=== PATIENT | female | born 1965 | race American Indian/Alaskan Native ===

== ENCOUNTER 2017-10-22 00:40 | Emergency (ER) | payer OTHER, MEDICARE ==
[2017-10-22] MEDS ORDERED: ZOFRAN ODT PO ONE (02:47)
[2017-10-22] MEDS ORDERED: TYLENOL PO ONE (02:47)
[2017-10-22] MEDS: MORPHINE IM ONE ×2 (02:50→03:29)
[2017-10-22] MEDS ORDERED: MORPHINE ONE (02:56)
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
[2017-10-22] MEDS ORDERED: DILAUDID ONE (03:52)
[2017-10-22] MEDS ORDERED: DILAUDID IM ONE (03:52)
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
--- NOTE | 2017-10-22 04:41 | XRay Report ---
FINAL REPORT EXAM: XR SPINE CERVICAL 2-3V HISTORY: right lower neck pain TECHNIQUE: Four views of the cervical spine were obtained. FINDINGS: There is mild narrowing of the C4-C5-C5-C6 and C6-C7 disc. There anterior osteophyte at C4. The alignment appears normal. The pre vertebral soft tissues and C1-C2 articulation otherwise appear intact. IMPRESSION: Degenerative arthritic changes as described. No acute injury.
--- NOTE | 2017-10-22 04:42 | XRay Report ---
FINAL REPORT EXAM: XR SPINE THORACIC 3V HISTORY: interscapula back pain TECHNIQUE: AP and lateral views of the thoracic spine were submitted. FINDINGS: There is disc degeneration in the mid to upper dorsal spine. There is no evidence of fracture. The soft tissue lines are well maintained. IMPRESSION: Disc degeneration in the mid to upper thoracic spine. No evidence of fracture.
[2017-10-22 06:50] VITALS: BP 119/69
== END 2017-10-22 07:11 | disposition home or self-care (01) ==
LOC: ED 00:40
DX: G44.319 Acute post-traumatic headache, not intractable (principal); V49.50XA Passenger injured in collision with unspecified motor vehicles in traffic accident, initial encounter; M25.511 Pain in right shoulder; M54.2 Cervicalgia; K21.9 Gastro-esophageal reflux disease without esophagitis; M19.90 Unspecified osteoarthritis, unspecified site; F31.9 Bipolar disorder, unspecified; Z90.49 Acquired absence of other specified parts of digestive tract; Z86.73 Personal history of transient ischemic attack (TIA), and cerebral infarction without residual deficits; Z88.1 Allergy status to other antibiotic agents; Z88.6 Allergy status to analgesic agent; Y93.89 Activity, other specified; Y92.89 Other specified places as the place of occurrence of the external cause; Y99.8 Other external cause status
CPT/HCPCS: 70450; 72040; 72072; 93005; 93010; 96372; 99285; J1170; J2270; Q0162

== ENCOUNTER 2018-08-15 22:25 | Emergency (ER) | payer MEDICARE ==
[2018-08-15] MEDS ORDERED: NACL 0.9% 1000 ML 1,000 ML IV ONE (22:33)
[2018-08-15 22:57] LABS: Basophils % (Auto) 0.1 % (0.0-1.8); Eosinophils # (Auto) 0.2 K/mm3 (0.0-0.4); Eosinophils % (Auto) 2.1 % (0.0-4.3); Hematocrit 35.7 % (30.3-42.9); Hemoglobin 12.4 gm/dl (10.1-14.3); Lymphocytes # (Auto) 1.2 K/mm3 (1.2-5.4); Lymphocytes % (Auto) 10.8 % (13.4-35.0); Mean Corpuscular HGB Conc 35 % (30-34); Mean Corpuscular Volume 95 fl (79-97); Monocytes # (Auto) 0.6 K/mm3 (0.0-0.8); Monocytes % (Auto) 5.5 % (0.0-7.3); Platelet Count 233 K/mm3 (140-440); Red Blood Count 3.78 M/mm3 (3.65-5.03); Red Cell Distribution Width 14.2 % (13.2-15.2)
[2018-08-15 23:16] LABS: Alanine Aminotransferase 13 units/L (7-56); Albumin 4.3 g/dL (3.9-5); BUN/Creatinine Ratio 17; Blood Urea Nitrogen 10 mg/dL (7-17); Calcium 9.3 mg/dL (8.4-10.2); Hemolysis Index 24
[2018-08-15] MEDS ORDERED: HALDOL IM STA (23:19)
--- NOTE | 2018-08-15 23:20 | Emergency Department Report ---
ED General Adult HPI - General Chief complaint: Abdominal Pain Stated complaint: ABD PAIN Time Seen by Provider: 08/15/18 23:19 Source: patient, EMS (ems notes not available at time of chart dictation), RN notes reviewed, old records reviewed Mode of arrival: Stretcher Limitations: No Limitations - History of Present Illness Initial comments: This is a 53-year-old female. The patient is not known to this provider previously. The patient presents to the emergency room with the complaint of diffuse abdominal pain, nausea and vomiting. Patient reports chronic abdominal pain, and frequent issues with nausea, vomiting. Her past medical history includes documented stroke, GERD, bipolar, schizophrenia, chronic pain, gastroparesis, neuropathy, multiple abdominal surgeries, abdominal colectomy, and reported cannabis consumption. Patient was last seen in this hospital in 2014. In that year, she had multiple CT scans of the abdomen and pelvis for chronic abdominal pain, which demonstrated chronic findings. Today, the patient presents to the emergency room with her typical complaint of abdominal pain, nausea and vomiting. She denies irritative, obstructive urinary symptoms. She reports recently, being evaluated and treated in [place]. However, she reports her local physician is at [facility]. In the emergency room, she is initially writhing around in discomfort, and retching. However, when this provider interviews the patient, she stops retching, has a full conversation, and is noted to be laying down quite still. -: Gradual, hour(s) Location: abdomen Radiation: non-radiation Quality: aching Consistency: constant Improves with: medication Worsens with: movement Associated Symptoms: loss of appetite, malaise, nausea/vomiting, weakness - Related Data Previous Rx's Medication Instructions Recorded Last Taken Type Acetaminophen [Tylenol Arthritis] 650 mg PO Q6HR PRN #30 tablet.er 08/16/18 Unknown Rx Clindamycin HCl 300 mg PO Q6HR #20 capsule 08/16/18 Unknown Rx Dicyclomine [Bentyl] 10 mg PO QID PRN #20 capsule 08/16/18 Unknown Rx Famotidine [Pepcid] 20 mg PO BID #30 tablet 08/16/18 Unknown Rx Metoclopramide [Reglan] 10 mg PO QID PRN #30 tablet 08/16/18 Unknown Rx Promethazine [Phenergan SUPPOS] 50 mg IA Q6H PRN #20 supp.rect 08/16/18 Unknown Rx Allergies Allergy/AdvReac Type Severity Reaction Status Date / Time ciprofloxacin [From Cipro] Allergy Hives Verified 05/24/15 14:49 ciprofloxacin HCl Allergy Hives Verified 05/24/15 14:49 [From Cipro] fentanyl Allergy Unknown Verified 08/15/18 22:35 ibuprofen Allergy Hives Verified 05/24/15 14:49 ketorolac tromethamine Allergy Hives Verified 05/24/15 14:49 [From Toradol] meperidine HCl [From Demerol] Allergy Hives Verified 05/24/15 14:49 metronidazole [From Flagyl] Allergy Hives Verified 05/24/15 14:49 Penicillins Allergy Hives Verified 05/24/15 14:49 Sulfa (Sulfonamide Allergy Hives Verified 05/24/15 14:49 Antibiotics) azithromycin [From Zithromax] AdvReac Unknown Verified 08/15/18 22:35 loperamide [From Imodium A-D] AdvReac Unknown Verified 08/15/18 22:35 morphine AdvReac Unknown Verified 05/24/15 14:49 DISSOLVEABLE SUTURES Allergy Unknown Uncoded 05/24/15 14:49 ED Review of Systems ROS: Stated complaint: ABD PAIN Other details as noted in HPI Constitutional: malaise. denies: fever Eyes: denies: vision change ENT: denies: epistaxis Respiratory: denies: orthopnea Cardiovascular: denies: chest pain Gastrointestinal: abdominal pain, nausea, vomiting Genitourinary: denies: dysuria Musculoskeletal: arthralgia, myalgia Skin: denies: lesions Neurological: weakness Psychiatric: anxiety ED Past Medical Hx - Past Medical History Previous Medical History?: Yes Hx CVA: Yes (09/2013) Hx GERD: Yes Hx Arthritis: Yes Hx Psychiatric Treatment: Yes (bipolar/ schizoprenia.."NERVOUS BREAKDOWN") Additional medical history: Chronic pain. gastroparesis. neuropathy. - Surgical History Past Surgical History?: Yes Hx Cholecystectomy: Yes Additional Surgical History: "multiple (33) surgeries", patient states she had colon cancer with a complete colectomy and had multiple complicating surgeries after that. Ileostomy - Social History Smoking Status: Current Every Day Smoker Substance Use Type: Alcohol, Marijuana - Medications Home Medications: Home Medications Medication Instructions Recorded Confirmed Last Taken Type Acetaminophen [Tylenol Arthritis] 650 mg PO Q6HR PRN #30 tablet.er 08/16/18 Unknown Rx Clindamycin HCl 300 mg PO Q6HR #20 capsule 08/16/18 Unknown Rx Dicyclomine [Bentyl] 10 mg PO QID PRN #20 capsule 08/16/18 Unknown Rx Famotidine [Pepcid] 20 mg PO BID #30 tablet 08/16/18 Unknown Rx Metoclopramide [Reglan] 10 mg PO QID PRN #30 tablet 08/16/18 Unknown Rx Promethazine [Phenergan SUPPOS] 50 mg IA Q6H PRN #20 supp.rect 08/16/18 Unknown Rx ED Physical Exam - General Limitations: No Limitations General appearance: alert, in no apparent distress - Head Head exam: Present: atraumatic, normocephalic - Eye Eye exam: Present: normal appearance, EOMI. Absent: nystagmus - ENT ENT exam: Present: normal exam, normal orophraynx, mucous membranes moist, normal external ear exam - Neck Neck exam: Present: normal inspection, full ROM. Absent: tenderness, meningismus - Respiratory Respiratory exam: Present: normal lung sounds bilaterally. Absent: respiratory distress - Cardiovascular Cardiovascular Exam: Present: regular rate, normal rhythm, normal heart sounds. Absent: bradycardia, tachycardia, irregular rhythm, systolic murmur, diastolic murmur, rubs, gallop - GI/Abdominal GI/Abdominal exam: Present: soft, other (colostomy noted with no redness, pus or streaking.). Absent: distended, tenderness, guarding, rebound, rigid, pulsatile mass - Rectal Rectal exam: Present: normal inspection (chaperoned by reclamation furnace operator Jonny Wise) - External exam: Present: other (chaperoned by reclamation furnace operator Jonny Cole) - Extremities Exam Extremities exam: Present: normal inspection, full ROM, other (2+ pulses noted in the bilateral upper, lower extremities. Compartments soft. No long bony tenderness. The pelvis is stable.). Absent: pedal edema, joint swelling, calf tenderness - Back Exam Back exam: Present: normal inspection, full ROM. Absent: tenderness, CVA tenderness (R), paraspinal tenderness, vertebral tenderness - Neurological Exam Neurological exam: Present: alert, oriented X3, other (Extraocular movements intact. Tongue midline. No facial droop. Facial sensation intact to light touch in the V1, V2, V3 distribution bilaterally. 5 and 5 strength in 4 extremities.. Sensation is intact to light touch in 4 extremities.). Absent: motor sensory deficit - Psychiatric Psychiatric exam: Present: anxious - Skin Skin exam: Present: warm, dry, intact, normal color. Absent: rash ED Course Vital Signs 08/15/18 08/15/18 08/15/18 23:10 23:46 23:48 Temperature Pulse Rate 87 57 L 64 Respiratory 25 H 15 15 Rate Blood Pressure 136/77 136/77 Blood Pressure [Left] O2 Sat by Pulse 100 99 Oximetry 08/16/18 08/16/18 08/16/18 00:00 01:58 03:00 Temperature 98.5 F Pulse Rate 59 L 82 Respiratory 18 16 Rate Blood Pressure 136/77 Blood Pressure 106/67 [Left] O2 Sat by Pulse 99 99 Oximetry 08/16/18 03:01 Temperature Pulse Rate Respiratory 15 Rate Blood Pressure Blood Pressure [Left] O2 Sat by Pulse 98 Oximetry - Reevaluation(s) Reevaluation #1: 08/16/18 01:46 ga composite technician aware Filled ID Written Drug QTY Days Prescriber Rx # Pharmacy * Refills Daily Dose Pymt Type [employer]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 08/05/2018 2 08/05/2018 OXYCODONE HCL 30 MG TABLET 45.0 15 CLA [id number] PALLI ([id number]) 0 135.0 MME Comm Ins 07/26/2018 6 07/26/2018 LORAZEPAM 1 MG TABLET 20.0 6 [facility] [id number] AMANUEL ([id number]) 0 Private Pay 07/23/2018 2 07/23/2018 OXYCODONE HCL 30 MG TABLET 45.0 15 CLA [id number] [facility] ([id number]) 0 135.0 MME Comm Ins 07/09/2018 2 07/09/2018 OXYCODONE HCL 30 MG TABLET 45.0 15 CLA [id number] [facility] ([id number]) 0 135.0 MME Comm Ins 06/25/2018 2 06/25/2018 OXYCODONE HCL 30 MG TABLET 45.0 15 CLA [id number] [facility] ([id number]) 0 135.0 MME Comm Ins 06/11/2018 2 06/11/2018 OXYCODONE HCL 30 MG TABLET 45.0 15 [facility] [id number] PALLI ([id number]) 0 135.0 MME Comm Ins [place] 08/16/18 01:49 It appears that the patient has multiple controlled prescriptions from a [facility] in [place], [place] [phone] [address] [place] [address] Reevaluation #2: 08/16/18 01:49 Differential diagnosis, including but not limited to: GERD, gastritis, hiatal hernia, cyclic vomiting syndrome, cannabinoid hyperemesis syndrome, narcotic bowel syndrome Assessment and plan: 53-year-old female, documented to be on multiple chronic narcotic therapies, reported history of cannabis use, clinically sober at this time, has a full conversation with me, in no acute distress, with no active vomiting. Highly doubt acute condition at this time, this is likely related to her chronic medical conditions, and chronic use of opioids, and cannabis. Patient given Haldol, this basically stopped her symptoms. Laboratory studies thus far unremarkable. Temperature documented to be 98. CT scan of the abdomen and pelvis has been acquired, we are awaiting interpretation. Reevaluation #3: 08/16/18 04:48 CT scan findings reviewed and appreciated, and demonstrated a very small subcutaneous fluid collection. On her physical exam, it does not appear to be consistent with an abscess. However, these findings are new when compared to prior CT scan. Patient reassessed multiple times by myself while in the emergency department. She is sleeping comfortably, and in no acute distress. I will start her on oral outpatient antibiotics, and discharged with nonnarcotic, nonsedating, hys-gaggq-ainqfab medication, nausea medication. Discussed with the general surgeon on-call, Dr. Ana Laura Urbina, who agreed that it would be reasonable to discharge patient with oral antibiotics, and that her current presentation did not qualify for emergent hospitalization or emergent surgical intervention. Her practice is amenable to seeing the patient as a follow-up. - EJ/Peripheral Line Neck L Time Out Performed: Yes Indications: nurses unable to establis Skin Cleansed in Sterile Fashion: Yes Size: 20 Dressing Placed: Tegaderm Patient Tolerated Procedure: well ED Medical Decision Making - Lab Data Result diagrams: 08/15/18 22:41 08/15/18 22:41 Vital Signs 08/15/18 08/15/18 08/15/18 23:10 23:46 23:48 Pulse Rate 87 57 L 64 Respiratory 25 H 15 15 Rate Blood Pressure 136/77 136/77 O2 Sat by Pulse 100 99 Oximetry 08/16/18 00:00 Pulse Rate 59 L Respiratory 18 Rate Blood Pressure 136/77 O2 Sat by Pulse 99 Oximetry Lab Results 08/15/18 08/15/18 08/15/18 Range/Units 00:54 22:41 22:41 WBC 11.5 H (4.5-11.0) K/mm3 RBC 3.78 (3.65-5.03) M/mm3 Hgb 12.4 (10.1-14.3) gm/dl Hct 35.7 (30.3-42.9) % MCV 95 (79-97) fl MCH 33 H (28-32) pg MCHC 35 H (30-34) % RDW 14.2 (13.2-15.2) % Plt Count 233 (140-440) K/mm3 Lymph % (Auto) 10.8 L (13.4-35.0) % [place] % (Auto) 5.5 (0.0-7.3) % Eos % (Auto) 2.1 (0.0-4.3) % Baso % (Auto) 0.1 (0.0-1.8) % Lymph # 1.2 (1.2-5.4) K/mm3 [place] # 0.6 (0.0-0.8) K/mm3 Eos # 0.2 (0.0-0.4) K/mm3 Baso # 0.0 (0.0-0.1) K/mm3 Seg Neutrophils % 81.5 H (40.0-70.0) % Seg Neutrophils # 9.4 H (1.8-7.7) K/mm3 Sodium 145 (137-145) mmol/L Potassium 3.7 (3.6-5.0) mmol/L Chloride 104.7 (98-107) mmol/L Carbon Dioxide 26 (22-30) mmol/L Anion Gap 18 mmol/L BUN 10 (7-17) mg/dL Creatinine 0.6 L (0.7-1.2) mg/dL Estimated GFR > 60 ml/min BUN/Creatinine Ratio 17 % Glucose 153 H (65-100) mg/dL Calcium 9.3 (8.4-10.2) mg/dL Magnesium (1.7-2.3) mg/dL Total Bilirubin 0.60 (0.1-1.2) mg/dL AST 20 (5-40) units/L ALT 13 (7-56) units/L Alkaline Phosphatase 81 (35-129) units/L Total Creatine Kinase (30-135) units/L Total Protein 6.5 (6.3-8.2) g/dL Albumin 4.3 (3.9-5) g/dL Albumin/Globulin Ratio 2.0 % Urine Color Yellow (Yellow) Urine Turbidity Cloudy (Clear) Urine pH 7.0 (5.0-7.0) Ur Specific [place] 1.035 H (1.003-1.030) Urine Protein <15 mg/dl (Negative) mg/dL Urine Glucose (UA) Neg (Negative) mg/dL Urine Ketones Neg (Negative) mg/dL Urine Blood Neg (Negative) Urine Nitrite Neg (Negative) Urine Bilirubin Neg (Negative) Urine Urobilinogen < 2.0 (<2.0) mg/dL Ur Leukocyte Esterase Sm (Negative) Urine WBC (Auto) 12.0 H (0.0-6.0) /HPF Urine RBC (Auto) 1.0 (0.0-6.0) /HPF U Epithel Cells (Auto) < 1.0 (0-13.0) /HPF Amorphous Crystals 1+ Urine Mucus Few /HPF 08/15/18 Range/Units 23:47 WBC (4.5-11.0) K/mm3 RBC (3.65-5.03) M/mm3 Hgb (10.1-14.3) gm/dl Hct (30.3-42.9) % MCV (79-97) fl MCH (28-32) pg MCHC (30-34) % RDW (13.2-15.2) % Plt Count (140-440) K/mm3 Lymph % (Auto) (13.4-35.0) % [place] % (Auto) (0.0-7.3) % Eos % (Auto) (0.0-4.3) % Baso % (Auto) (0.0-1.8) % Lymph # (1.2-5.4) K/mm3 [place] # (0.0-0.8) K/mm3 Eos # (0.0-0.4) K/mm3 Baso # (0.0-0.1) K/mm3 Seg Neutrophils % (40.0-70.0) % Seg Neutrophils # (1.8-7.7) K/mm3 Sodium (137-145) mmol/L Potassium (3.6-5.0) mmol/L Chloride (98-107) mmol/L Carbon Dioxide (22-30) mmol/L Anion Gap mmol/L BUN (7-17) mg/dL Creatinine (0.7-1.2) mg/dL Estimated GFR ml/min BUN/Creatinine Ratio % Glucose (65-100) mg/dL Calcium (8.4-10.2) mg/dL Magnesium 2.20 (1.7-2.3) mg/dL Total Bilirubin (0.1-1.2) mg/dL AST (5-40) units/L ALT (7-56) units/L Alkaline Phosphatase (35-129) units/L Total Creatine Kinase 103 (30-135) units/L Total Protein (6.3-8.2) g/dL Albumin (3.9-5) g/dL Albumin/Globulin Ratio % Urine Color (Yellow) Urine Turbidity (Clear) Urine pH (5.0-7.0) Ur Specific [place] (1.003-1.030) Urine Protein (Negative) mg/dL Urine Glucose (UA) (Negative) mg/dL Urine Ketones (Negative) mg/dL Urine Blood (Negative) Urine Nitrite (Negative) Urine Bilirubin (Negative) Urine Urobilinogen (<2.0) mg/dL Ur Leukocyte Esterase (Negative) Urine WBC (Auto) (0.0-6.0) /HPF Urine RBC (Auto) (0.0-6.0) /HPF U Epithel Cells (Auto) (0-13.0) /HPF Amorphous Crystals Urine Mucus /HPF - EKG Data -: EKG Interpreted by [facility] EKG shows normal: sinus rhythm Rate: normal - EKG Data 08/16/18 01:51 Sinus, 65 bpm, normal axis, normal intervals, not consistent with ST elevation myocardial infarction. - Radiology Data Radiology results: pending Critical care attestation.: If time is entered above; I have spent that time in minutes in the direct care of this critically ill patient, excluding procedure time. ED Disposition Clinical Impression: Abdominal pain Disposition: DC-01 TO HOME OR SELFCARE Is pt being admited?: No Does the pt Need Aspirin: No Condition: Stable Instructions: Abdominal Pain (ED) Additional Instructions: I recommend the patient discontinued consumption of cannabis, marijuana. I recommend the patient Descalate/taper use of narcotic therapies, as combination of oxycodone, OxyContin, narcotic medications, in conjunction with cannabis, marijuana, has been known to cause worsening abdominal pain, nausea, vomiting. Please follow-up with your primary care doctor or pain specialist to initiate and discuss a taper of the aforementioned medications. Take the pain medication, which is nonsedating [id number]-eqhbdyy, as needed/directed, and the nausea medications as needed/directed. Please follow-up with the listed general surgeon within the next 3-[address] scan of the abdomen and pelvis demonstrated a very small fluid collection next to the ostomy. This is very unlikely to be infected, but the patient will be discharged with oral antibiotics. It is very important to follow-up with the listed general surgeon to further evaluate this nonspecific fluid collection. Return to the emergency room right away with new, worsened or different symptoms. [facility] in [place], [place] [phone] [address] [place] [address] Prescriptions: Dicyclomine [Bentyl] 10 mg PO QID PRN #20 capsule PRN Reason: Pain Famotidine [Pepcid] 20 mg PO BID #30 tablet Promethazine [Phenergan SUPPOS] 50 mg IA Q6H PRN #20 supp.rect PRN Reason: Nausea Metoclopramide [Reglan] 10 mg PO QID PRN #30 tablet PRN Reason: Nausea Acetaminophen [Tylenol Arthritis] 650 mg PO Q6HR PRN #30 tablet.er PRN Reason: Pain Referrals: [facility] [Provider Group] - 3-5 Days MERLY URBINA DO [Staff Physician] - 3-5 Days
[2018-08-16 01:22] LABS: Amorphous Crystals,Urine 1+; Bilirubin,Urine NEG (Negative); Blood,Urine NEG (Negative); Color,Urine Yellow (Yellow); Mucus,Urine FEW /HPF; Protein,Urine <15 mg/dL mg/dL (Negative); Urobilinogen,Urine < 2.0 mg/dL (<2.0)
--- NOTE | 2018-08-16 01:46 | Cat Scan Report ---
PROCEDURE: CT ABDOMEN PELVIS W CON TECHNIQUE: Computerized axial tomography of the abdomen and pelvis was performed after the IV inject ion of iodinated nonionic contrast. CT DOSE LENGTH PRODUCT: mGycm HISTORY: abd pain n/v COMPARISONS: None . FINDINGS: Visualized lower thorax: No significant abnormality. Liver: Normal size and attenuation. Spleen: Normal size and attenuation. Gallbladder and biliary system: There has been a cholecystectomy.. Pancreas: Normal. Adrenals: Normal. Kidneys: Normal. 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 There is no spe cific evidence of bowel obstruction or enteritis. . Lymph nodes and mesentery: Normal. Vasculature: Normal.. Bladder: Normal. Reproductive organs: The uterus is atrophic and retroverted.. Peritoneum: There is no ascites or free air.. Musculoskeletal structures: No significant abnormality. Other: There is a subcutaneous loculated fluid collection adjacent to the ostomy measuring 2 cm in d iameter. There is a similar hypodense lesion in the subcutaneous fat near the umbilicus measuring 8 m m. These could be postsurgical seromas. Possibility of abscess not excluded. . IMPRESSION: There has been a cholecystectomy.. 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 There is no specific evide nce of bowel obstruction or enteritis. . The uterus is atrophic and retroverted.. There is no ascites or free air.. There is a subcutaneous loculated fluid collection adjacent to the ostomy measuring 2 cm in diameter. There is a similar hypodense lesion in the subcutaneous fat near the umbilicus measuring 8 mm. These could be postsurgical seromas. Possibility of abscesses not excluded. . . This document is electronically signed by Dante Ceron MD., August 16 2018 01:43:59 AM ET
[2018-08-16 05:32] VITALS: BP 96/59
== END 2018-08-16 05:30 | disposition home or self-care (01) ==
LOC: ED 22:25
DX: R10.84 Generalized abdominal pain (principal); R11.2 Nausea with vomiting, unspecified; K21.9 Gastro-esophageal reflux disease without esophagitis; F31.9 Bipolar disorder, unspecified; F20.9 Schizophrenia, unspecified; F17.200 Nicotine dependence, unspecified, uncomplicated; M19.90 Unspecified osteoarthritis, unspecified site; G62.9 Polyneuropathy, unspecified; Z90.49 Acquired absence of other specified parts of digestive tract; Z88.0 Allergy status to penicillin; Z88.1 Allergy status to other antibiotic agents; Z88.2 Allergy status to sulfonamides; Z88.5 Allergy status to narcotic agent
CPT/HCPCS: 36415; 74177; 80053; 81001; 82550; 83735; 85025; 93005; 93010; 96360; 96372; 99285; J1630; J7030; Q9967